=== PATIENT | female | born 1990 | race Hispanic/Latino ===

== ENCOUNTER → 2023-10-14 12:49 | Outpatient (CLI) | payer OTHER, SELFPAY ==
--- NOTE | 2023-10-14 | DI.US.S_ITS ---
PROCEDURE: US THYROID INDICATIONS: Nontoxic goiter TECHNIQUE: Real-time scanning was performed of the thyroid gland, with image documentation. COMPARISON: None. FINDINGS: Thyroid: Right lobe measures 5 x 2.1 x 2 cm. Left lobe measures 4.5 x 1.6 x 1.8 cm. Isthmus is 0.3 cm thick. Echotexture is heterogeneous. Nodule number: 1 Location: Right mid thyroid Size: 1 x 0.8 x 0.9 cm. Composition: Solid Echogenicity: Hypoechoic Shape: wider than tall. Margins: Irregular Echogenic foci: Larger calcifications can be seen. Note is made that this nodule is hypervascular. Total points: 8 ACR TI-RADS category: 5 IMPRESSION: There is a suspicious nodule seen within the right mid thyroid lobe. An ultrasound guided thyroid biopsy is recommended, by published criteria. ACR TI-RADS definitions and recommendations: TI-RADS 1 (benign): 0 points. FNA not needed. TI-RADS 2 (not suspicious): 2 points. FNA not needed. TI-RADS 3 (mildly suspicious): 3 points. * FNA if 2.5 cm or larger, follow up if 1.5 cm or larger (at 1, 3, and 5 years). TI-RADS 4 (moderately suspicious): 4-6 points. * FNA if 1.5 cm or larger, follow up if 1 cm or larger (at 1, 2, 3, and 5 years). TI-RADS 5 (highly suspicious): 7 points or more. * FNA if 1 cm or larger, follow up if 0.5 cm or larger (every year for 5 years). Dictated by: Jesus Huerta M.D. on 10/14/2023 at 18:28 Approved by: Jesus Huerta M.D. on 10/14/2023 at 18:29
== END ==
PROVIDERS: Visit Provider Physician Assistant
DX: E04.1 Nontoxic single thyroid nodule (principal)
CPT/HCPCS: 76536

== ENCOUNTER → 2023-11-03 07:54 | Outpatient (CLI) | payer OTHER, SELFPAY ==
--- NOTE | 2023-11-03 | PATH_ITS ---
Note [facility] Accession Number: [id number] TESTS RESULT FLAG UNITS REF RANGE LAB Clinician Provided Cytology Information No. of containers..01 Other (Miscellaneous) No. of containers..02 Previously Prepared Cytology Slide Source: [A] 01 RIGHT THYROID NODULE #1 DIAGNOSIS: [A] 01 RIGHT THYROID NODULE #1 SUSPICIOUS FOR MALIGNANCY. [place] CATEGORY V. SUSPICIOUS FOR PAPILLARY CARCINOMA. SPECIMEN CONSISTS OF FOLLICULAR CELLS WITH NUCLEAR ENLARGEMENT, NUCLEAR PALLOR WITH GROOVES. INTRANUCLEAR PSEUDOINCLUSIONS ARE RARE. 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 Pathologist ICD10: 01 R89.6, E04.1 Signed out by: Tanja Ivy MD, Pathologist NPI- [id number] Performed by: Rohan Tinoco, Career Development Engineer ([facility]) Gross description: 30 CC, RED, CLOUDY RECIEVED: IN CYTOLYT WITH 6 ALCOHOL FIXED AND 6 QUICK STAINED SLIDES ALSO 1 RNA VIAL WILL ON 02-06-2025.VO /VDU 11/04/2023 0614 Local FLAG LEGEND: L-Low Normal,H-High Normal,LL-Alert Low,HH-Alert High <-Panic Low,>-Panic High,A-Abnormal,AA-Critical Abnormal Performed at: 01 =Z [facility] [address] [place] [address] [address], [place] [address] Zak Esposito MD, Performed at: 01 [facility] [address] [place] [address] [id number] MD Zak Esposito MD Phone: [phone]
--- NOTE | 2023-11-03 07:55 | DI.US.S_ITS ---
PROCEDURE: US FINE NEEDLE ASPIRATION INDICATIONS: Abnormal US of thyroid TECHNIQUE: The indications, alternatives, benefits, risks, and complications of the procedure were explained to the patient. Written informed consent was obtained and placed in the chart. The thyroid region was examined sonographically and a site was chosen for ultrasound guided percutaneous sampling. The skin was prepared and draped in the usual fashion, and anesthetized with 1% lidocaine infiltrated from the skin down to the thyroid gland. Multiple passes were then performed, with contents emptied into an appropriate pathology specimen container. A bandage was applied to the area of access at completion of the study. COMPARISON: [facility], US, US THYROID, 10/14/2023, 13:06. FINDINGS: Location(s) of lesion(s) sampled: Right mid thyroid nodule #1. Measured 1 x 0.9 x 0.8 cm. [place]: 25 gauge hypodermic needles x 3. 22 gauge hypodermic needles x 3. Medications: 1% lidocaine for local anaesthesia. Complications: None. IMPRESSION: Successful ultrasound-guided thyroid nodule fine needle aspiration, with cytology results pending. Please see chart below for management recommendations based on cytology results. [place] [facility] ReportingRecommendationsNon-diagnostic* Repeat US-guided FNA, with on-site cytology evaluation if possible. * Repeated non-diagnostic nodules without high suspicion US features: close observation vs surgical consult. * Consider surgery if nodule has high suspicion US features, grows >20% in 2 dimensions on followup, or patient has clinical risk factors for malignancy. Benign* If nodule has high suspicion US features: repeat US and FNA within 12 months. * If nodule has low to intermediate suspicion US features: repeat US at 12-24 months. If nodule grows (20% increase in at least 2 dimensions, with minimal increase of 2 mm or >50% change in volume), or development of new suspicious US features, then repeat FNA or continue followup. * If nodule has very low suspicion US features: followup US at >24 months. Atypia of undetermined significance, follicular lesion of undetermined significanceRepeat FNA, molecular testing, followup US, or surgical consult.Follicular neoplasm, suspicious for follicular neoplasmSurgical consult; also consider molecular testing. Suspicious for malignancySurgical consult.MalignantSurgical consult. Dictated by: Júnior Bar M.D. on 11/03/2023 at 10:56 Approved by: Júnior Bar M.D. on 11/03/2023 at 10:58
== END ==
PROVIDERS: PCP Family Medicine; Referring Provider Family Medicine; Visit Provider Family Medicine
DX: E04.1 Nontoxic single thyroid nodule (principal)
CPT/HCPCS: 10005

== ENCOUNTER → 2024-08-04 12:15 | Outpatient (CLI) | payer OTHER, SELFPAY ==
--- NOTE | 2024-08-04 12:17 | DI.RAD.S_ITS ---
PROCEDURE: XR ANKLE LT MIN 3V INDICATIONS: pain TECHNIQUE: 3 views of the ankle were acquired. COMPARISON: None. FINDINGS: No acute fracture or dislocation. The ankle mortise is preserved on the nonweightbearing view. No talar dome osteochondral defect. Small tibiotalar joint effusion. Mild Achilles calcaneal enthesopathy. IMPRESSION: Small tibiotalar joint effusion and mild Achilles calcaneal enthesopathy. No other acute abnormality. Dictated by: Markell Mcgee M.D. on 08/05/2024 at 13:25 Approved by: Markell Mcgee M.D. on 08/05/2024 at 13:28
--- NOTE | 2024-08-04 12:17 | DI.RAD.S_ITS ---
PROCEDURE: XR FOOT LT MIN 3V INDICATIONS: pain TECHNIQUE: 3 views of the foot were acquired. COMPARISON: None. FINDINGS: Possible type 3 os naviculare. No acute fracture or dislocation. The Lisfranc interval is preserved on the nonweightbearing view. The joint spaces are preserved. IMPRESSION: No acute fracture or dislocation of the left foot. Dictated by: Markell Mcgee M.D. on 08/05/2024 at 13:28 Approved by: Markell Mcgee M.D. on 08/05/2024 at 13:30
== END ==
LOC: RAD 12:17
PROVIDERS: PCP Family Medicine; Referring Provider Physician Assistant; Visit Provider Physician Assistant
DX: S93.602A Unspecified sprain of left foot, initial encounter (principal); M25.472 Effusion, left ankle; M77.32 Calcaneal spur, left foot; X58.XXXA Exposure to other specified factors, initial encounter
CPT/HCPCS: 73610; 73630

== ENCOUNTER → 2025-02-17 07:30 | Outpatient (CLI) | payer OTHER, SELFPAY ==
[2025-02-17 08:09] LABS: Add Manual Diff / Slide Review NO; Hematocrit 40.1 % (36-46); Hemoglobin 13.6 g/dL (12.0-16.0); Lymphocytes Absolute Auto 2500 /uL (1100-4500); Mean Corpuscular HGB Conc 34.0 % (30-36); Mean Corpuscular Hemoglobin 29.3 PG (26-34); Mean Corpuscular Volume 86.2 fL (80-100); Platelet Count 335 X10^3/uL (150-400)
[2025-02-17 08:33] LABS: Alanine Aminotransferase 23 IU/L (<35); Albumin 4.6 g/dL (3.5-5.0); Albumin Globulin Ratio 1.5 (1.0-2.8); Alkaline Phosphatase 66 U/L (38-126); Blood Urea Nitrogen 11 mg/dL (7-17); Calcium 9.3 mg/dL (8.4-10.2); Carbon Dioxide 24 mmol/L (22-32); Chloride 102 mmol/L (98-107); Cholesterol 190 mg/dL (140-199); Estimated Glomerular Filt Rate > 60 mL/min (>60); Globulin 3.1 g/dL (1.7-4.1); Glucose 98 mg/dL (70-99); HDL Cholesterol 64 mg/dL (40-60); HEMOLYSIS 18 (0-50); Potassium 4.6 mmol/L (3.4-5.1); Sodium 136 mmol/L (137-145); Total Protein 7.7 g/dL (6.3-8.2); Triglycerides 174 mg/dL (35-150)
[2025-02-17 09:00] LABS: TSH w/ Reflex to FT4 0.26 uIU/mL (0.47-4.68)
[2025-02-17 09:26] LABS: Free T4, Direct Thyroxine 1.86 ng/dL (0.78-2.19)
== END ==
PROVIDERS: PCP Family Medicine; Referring Provider Family Medicine; Visit Provider Family Medicine
DX: E04.1 Nontoxic single thyroid nodule (principal); Z79.899 Other long term (current) drug therapy; Z13.220 Encounter for screening for lipoid disorders; K21.9 Gastro-esophageal reflux disease without esophagitis
CPT/HCPCS: 36415; 80053; 80061; 84439; 84443; 85025